=== PATIENT | female | born 1985 | race Caucasian/White ===

== ENCOUNTER 2021-10-18 00:32 | Emergency (ER) | payer SELFPAY ==
[2021-10-18] MEDS ORDERED: Metoclopramide HCl 10 MG/2 ML VIAL ONE (01:10)
[2021-10-18 01:20] LABS: #Eosinphils 0.1 10x3/uL (0.0-0.5); #Monocytes 0.5 10x3/uL (0.0-1.1); #Neutrophils 5.2 10x3/uL (1.5-8.4); %Basophils 0.4 % (0.0-2.0); %Eosinophils 1.6 % (0.0-6.0); %Lymphocytes 22.5 % (18.0-47.0); %Neutrophils 69.2 % (40.0-75.0); Hemoglobin 13.9 g/dL (12.0-15.5); Mean Corpuscular HGB CONC 34.2 g/dL (32.0-36.0); Mean Corpuscular Hemoglobin 28.7 pg (27.0-33.0); Mean Corpuscular Volume 83.7 fl (81.6-98.3); Mean Platelet Volume 9.8 fl (7.4-10.4); Platelet Count 197 10x3/uL (150-450); RBC Distribution Width 12.9 % (11.5-14.5); Red Blood Cell (RBC) Count 4.85 10x6/uL (3.90-5.03); White Blood Cell (WBC) Count 7.6 10x3/uL (3.5-10.5)
[2021-10-18] MEDS ORDERED: Ketorolac Tromethamine 30 MG/ML VIAL ONE (01:24)
[2021-10-18 01:30] LABS: BHCG - Serum Negative (NEGATIVE); Pregs Control Background? CLEAR/WHITE (CLR/WHITE); Pregs Control Bar Appear? YES (CONTROL BAR)
[2021-10-18 01:35] LABS: ALT (SGPT) 9 U/L (8-55); AST (SGOT) 14 U/L (5-34); Albumin 4.1 g/dL (3.5-5.0); Alkaline Phosphatase 50 U/L (40-110); Anion Gap 17 mmol/L (10-20); BUN (Urea Nitrogen) 6 mg/dL (7.0-18.7); Bilirubin, Total 0.7 mg/dL (0.2-1.2); Calc. Creatinine Clearance 0 mL/min (70-130); Calcium 9.3 mg/dL (7.8-10.44); Carbon Dioxide 17 mmol/L (22-29); Chloride 108 mmol/L (98-107); Estimated GFR 84; Globulin 2.5 g/dL (2.4-3.5); Glucose 121 mg/dL (70-105); Lipase 11 U/L (8-78); Protein, Total 6.6 g/dL (6.0-8.3); Sodium 139 mmol/L (136-145)
[2021-10-18 01:39] LABS: Potassium 2.9 mmol/L (3.5-5.1)
[2021-10-18 02:07] LABS: Actual Bicarbonate (HCO3v) 22 mEq/L (22-28); Base Excess -3.2 mEq/L (-2.0 to +3.0); Calcium, Ionized (venous) 1.12 mmol/L (1.16-1.32); Chloride (VBG) 106 mmol/L (98-106); Hemoglobin (Hb) 12.7 g/dL (11.7-15.5); Puncture Site Other Site; RapidComm Collect By CBN; Sodium 137.8 mmol/L (133-146); pH (venous) 7.34 (7.32-7.43)
[2021-10-18 02:30] LABS: Bilirubin 3+ (Negative); Blood, Urine 250 (Negative); Clarity Cloudy (Clear); Glucose, Urine (Dipstick) Normal (Negative); Ketone, Urine 5 mg/dL (Negative); Leukocyte 100 (Negative); Nitrite Negative (Negative); Protein, Urine (Dipstick) 100 mg/dl (Neg-Trace)
[2021-10-18 02:37] LABS: Bacteria/HPF 1+ HPF (None Seen); Mucous/LPF 1+ LPF (<2+); RBC/HPF 21-50 HPF (0-3)
== END 2021-10-18 03:16 | disposition home or self-care (01) ==
LOC: CSHERS 00:32
DX: R10.9 Unspecified abdominal pain (principal); E87.6 Hypokalemia; R11.2 Nausea with vomiting, unspecified
CPT/HCPCS: 36415; 80053; 81003; 81015; 82805; 83605; 83690; 84703; 85025; 96374; 96375; J1885; J2765

== ENCOUNTER 2022-03-06 12:57 | Emergency (ER) | payer SELFPAY ==
[2022-03-06 15:11] LABS: Bilirubin Neg (Negative); Blood, Urine Negative (Negative); Clarity Clear (Clear); Glucose, Urine (Dipstick) Normal (Negative); Ketone, Urine Negative (Negative); Leukocyte 25 (Negative); Nitrite Negative (Negative); Protein, Urine (Dipstick) 15 mg/dl (Neg-Trace); Urobilinogen Normal mg/dL (Less than 2)
[2022-03-06 15:23] LABS: Bacteria/HPF 2+ HPF (None Seen); RBC/HPF 0-3 HPF (0-3); WBC/HPF 0-3 HPF (0-3)
[2022-03-06 16:04] LABS: #Eosinphils 0.1 10x3/uL (0.0-0.5); #Monocytes 0.4 10x3/uL (0.0-1.1); #Neutrophils 3.6 10x3/uL (1.5-8.4); %Basophils 0.3 % (0.0-2.0); %Eosinophils 1.4 % (0.0-6.0); %Lymphocytes 30.9 % (18.0-47.0); %Monocytes 6.4 % (0.0-10.0); %Neutrophils 60.5 % (40.0-75.0); Hemoglobin 14.4 g/dL (12.0-15.5); Mean Corpuscular HGB CONC 34.5 g/dL (32.0-36.0); Mean Corpuscular Hemoglobin 29.6 pg (27.0-33.0); Mean Corpuscular Volume 85.6 fl (81.6-98.3); Mean Platelet Volume 10.4 fl (7.4-10.4); Platelet Count 186 10x3/uL (150-450); RBC Distribution Width 13.4 % (11.5-14.5); Red Blood Cell (RBC) Count 4.87 10x6/uL (3.90-5.03); White Blood Cell (WBC) Count 5.9 10x3/uL (3.5-10.5)
[2022-03-06 16:19] LABS: ALT (SGPT) 7 U/L (8-55); AST (SGOT) 11 U/L (5-34); Albumin 4.6 g/dL (3.5-5.0); Alkaline Phosphatase 49 U/L (40-110); Anion Gap 10 mmol/L (10-20); BUN (Urea Nitrogen) 4 mg/dL (7.0-18.7); Bilirubin, Total 0.6 mg/dL (0.2-1.2); Calc. Creatinine Clearance 0 mL/min (70-130); Calcium 9.8 mg/dL (7.8-10.44); Carbon Dioxide 24 mmol/L (22-29); Chloride 105 mmol/L (98-107); Estimated GFR 107; Globulin 2.6 g/dL (2.4-3.5); Glucose 97 mg/dL (70-105); Potassium 3.7 mmol/L (3.5-5.1); Protein, Total 7.2 g/dL (6.0-8.3); Sodium 135 mmol/L (136-145)
[2022-03-06] MEDS ORDERED: Ondansetron ODT 4 MG TAB ONE (16:39)
== END 2022-03-06 17:00 | disposition home or self-care (01) ==
LOC: CSHERS 12:57
DX: O23.41 Unspecified infection of urinary tract in pregnancy, first trimester (principal); N39.0 Urinary tract infection, site not specified; O21.9 Vomiting of pregnancy, unspecified; Z3A.01 Less than 8 weeks gestation of pregnancy
CPT/HCPCS: 80053; 81003; 81015; 84702; 85025; 86900; 86901; Q0162

== ENCOUNTER 2022-03-21 10:35 | Observation (INO) | payer BC, OTHER ==
[2022-03-21] MEDS ORDERED: Promethazine HCl 25 MG/ML VIAL ONE (11:20)
[2022-03-21 11:51] LABS: #Monocytes 0.7 10x3/uL (0.0-1.1); #Neutrophils 6.7 10x3/uL (1.5-8.4); %Basophils 0.5 % (0.0-2.0); %Eosinophils 0.3 % (0.0-6.0); %Lymphocytes 13.1 % (18.0-47.0); %Monocytes 7.9 % (0.0-10.0); %Neutrophils 77.4 % (40.0-75.0); Hemoglobin 16.5 g/dL (12.0-15.5); Mean Corpuscular HGB CONC 36.9 g/dL (32.0-36.0); Mean Corpuscular Hemoglobin 29.9 pg (27.0-33.0); Mean Corpuscular Volume 81.1 fl (81.6-98.3); Mean Platelet Volume 10.7 fl (7.4-10.4); Platelet Count 183 10x3/uL (150-450); RBC Distribution Width 13.1 % (11.5-14.5); Red Blood Cell (RBC) Count 5.51 10x6/uL (3.90-5.03); White Blood Cell (WBC) Count 8.7 10x3/uL (3.5-10.5)
[2022-03-21 12:04] LABS: ALT (SGPT) 26 U/L (8-55); AST (SGOT) 19 U/L (5-34); Albumin 4.7 g/dL (3.5-5.0); Alkaline Phosphatase 47 U/L (40-110); Anion Gap 17 mmol/L (10-20); BUN (Urea Nitrogen) 6 mg/dL (7.0-18.7); Bilirubin, Total 1.7 mg/dL (0.2-1.2); Calc. Creatinine Clearance 0 mL/min (70-130); Calcium 10.3 mg/dL (7.8-10.44); Carbon Dioxide 23 mmol/L (22-29); Chloride 97 mmol/L (98-107); Estimated GFR 115; Globulin 2.6 g/dL (2.4-3.5); Glucose 119 mg/dL (70-105); Magnesium 1.6 mg/dL (1.6-2.6); Potassium 2.7 mmol/L (3.5-5.1); Protein, Total 7.3 g/dL (6.0-8.3); Sodium 134 mmol/L (136-145)
[2022-03-21] MEDS ORDERED: Ondansetron PF 4 MG/2 ML Vial IVP PRN (12:45)
[2022-03-21] MEDS ORDERED: Ondansetron ODT 4 MG TAB SL PRN (12:45)
[2022-03-21] MEDS ORDERED: Metoclopramide HCl 10 MG/2 ML VIAL IVP PRN (12:45)
[2022-03-21] MEDS ORDERED: Magnesium 2 GM/50 ML BAG (IN WATER) ONE (13:18)
[2022-03-21] MEDS ORDERED: NS 0.9% w/ 40 MEQ KCL 1,000 ML IV ONE (13:18)
[2022-03-21] MEDS ORDERED: Potassium Chloride 20 MEQ TAB ONE (13:18)
[2022-03-21] MEDS ORDERED: Pantoprazole 40 MG VIAL ONE (13:19)
[2022-03-21 14:15] LABS: SARS-CoV-2 NAA Rapid Test Not Detected (NotDetected)
[2022-03-21 19:36] LABS: ALT (SGPT) 22 U/L (8-55); AST (SGOT) 16 U/L (5-34); Alkaline Phosphatase 40 U/L (40-110); Anion Gap 13 mmol/L (10-20); BUN (Urea Nitrogen) 4 mg/dL (7.0-18.7); Bilirubin, Total 1.1 mg/dL (0.2-1.2); Calc. Creatinine Clearance 182 mL/min (70-130); Calcium 8.9 mg/dL (7.8-10.44); Carbon Dioxide 21 mmol/L (22-29); Chloride 105 mmol/L (98-107); Estimated GFR 118; Globulin 2.1 g/dL (2.4-3.5); Glucose 93 mg/dL (70-105); Magnesium 2.1 mg/dL (1.6-2.6); Potassium 3.1 mmol/L (3.5-5.1); Protein, Total 6.1 g/dL (6.0-8.3); Sodium 136 mmol/L (136-145)
[2022-03-21] MEDS: Dextrose 5%-Lactated Ringers 1,000 ML IV SCH (20:58)
[2022-03-22] MEDS ORDERED: Ondansetron ODT 4 MG TAB PO PRN (04:09)
[2022-03-22] MEDS: Ondansetron PF 4 MG/2 ML Vial IVP PRN ×3 (04:18→21:07)
[2022-03-22] MEDS: Dextrose 5%-Lactated Ringers 1,000 ML IV SCH ×2 (04:25→12:54)
[2022-03-22] MEDS: NS 0.9% w/ 20 MEQ KCL 1,000 ML IV SCH (07:16)
[2022-03-22] MEDS: Metoclopramide HCl 10 MG/2 ML VIAL IVP PRN ×2 (08:17→16:46)
[2022-03-22] MEDS: Pantoprazole 40 MG VIAL IVP SCH (08:19)
[2022-03-23] MEDS: Dextrose 5%-Lactated Ringers 1,000 ML IV SCH ×2 (00:01→09:16)
[2022-03-23] MEDS: Metoclopramide HCl 10 MG/2 ML VIAL IVP PRN (09:10)
[2022-03-23] MEDS: Pantoprazole 40 MG VIAL IVP SCH (09:10)
[2022-03-23 11:27] VITALS: BP 129/75; TEMP 98.5
== END 2022-03-23 11:45 | disposition home or self-care (01) ==
LOC: CSHERS 10:35 → CSHPP 14:23
PROVIDERS: ADMIT Obstetrics & Gynecology; ATTEND Obstetrics & Gynecology
DX: O21.9 Vomiting of pregnancy, unspecified (principal); O09.521 Supervision of elderly multigravida, first trimester; O99.281 Endocrine, nutritional and metabolic diseases complicating pregnancy, first trimester; E87.6 Hypokalemia; Z3A.09 9 weeks gestation of pregnancy
CPT/HCPCS: 80053; 83735; 85025; 94760; 96361; 96365; 96367; 96368; 96375; 96376; C9113; G0378; J2405; J2550; J2765; J3475; J3480

== ENCOUNTER 2022-04-05 12:20 | Observation (INO) | payer BC, OTHER ==
[2022-04-05] MEDS ORDERED: Promethazine HCl 25 MG/ML VIAL ONE (13:31)
[2022-04-05 13:35] LABS: ALT (SGPT) 13 U/L (8-55); AST (SGOT) 16 U/L (5-34); Albumin 4.3 g/dL (3.5-5.0); Alkaline Phosphatase 54 U/L (40-110); Anion Gap 16 mmol/L (10-20); BUN (Urea Nitrogen) 5 mg/dL (7.0-18.7); Bilirubin, Total 0.8 mg/dL (0.2-1.2); Calc. Creatinine Clearance 0 mL/min (70-130); Calcium 9.4 mg/dL (7.8-10.44); Carbon Dioxide 18 mmol/L (22-29); Chloride 108 mmol/L (98-107); Estimated GFR 118; Globulin 2.3 g/dL (2.4-3.5); Glucose 134 mg/dL (70-105); Magnesium 1.7 mg/dL (1.6-2.6); Potassium 3.6 mmol/L (3.5-5.1); Protein, Total 6.6 g/dL (6.0-8.3); Sodium 138 mmol/L (136-145)
[2022-04-05 13:59] LABS: #Monocytes 0.3 10x3/uL (0.0-1.1); #Neutrophils 6.7 10x3/uL (1.5-8.4); %Basophils 0.4 % (0.0-2.0); %Eosinophils 0.1 % (0.0-6.0); %Lymphocytes 10.7 % (18.0-47.0); %Monocytes 3.8 % (0.0-10.0); %Neutrophils 84.1 % (40.0-75.0); Hemoglobin 14.3 g/dL (12.0-15.5); Mean Corpuscular HGB CONC 35.7 g/dL (32.0-36.0); Mean Corpuscular Hemoglobin 30.4 pg (27.0-33.0); Mean Corpuscular Volume 85.3 fl (81.6-98.3); Mean Platelet Volume 9.7 fl (7.4-10.4); Platelet Count 224 10x3/uL (150-450); RBC Distribution Width 13.9 % (11.5-14.5); White Blood Cell (WBC) Count 7.9 10x3/uL (3.5-10.5)
[2022-04-05] MEDS ORDERED: Dextrose 5 % And 0.9 % NaCl 1,000 ML IV SCH (15:28)
[2022-04-05 15:33] LABS: Bilirubin Neg (Negative); Blood, Urine 25 (Negative); Clarity Clear (Clear); Glucose, Urine (Dipstick) Normal (Negative); Ketone, Urine 150 mg/dL (Negative); Leukocyte Negative (Negative); Nitrite Negative (Negative); Protein, Urine (Dipstick) 30 mg/dl (Neg-Trace); Specific Gravity, Urine 1.025 (1.005-1.030); Urobilinogen Normal mg/dL (Less than 2)
[2022-04-05] MEDS ORDERED: Prochlorperazine 10 MG/2 ML VIAL ONE (15:37)
[2022-04-05] MEDS ORDERED: Thiamine HCl 200 MG/2 ML VIAL ONE (15:37)
[2022-04-05 15:52] LABS: Bacteria/HPF 1+ HPF (None Seen); Epithelial Cast 0-3 LPF (None Seen); Mucous/LPF 1+ LPF (<2+); RBC/HPF 0-3 HPF (0-3)
[2022-04-05 17:29] VITALS: BMI 37.1
[2022-04-05] MEDS ORDERED: Docusate 100 MG CAP PO PRN (17:33)
[2022-04-05] MEDS ORDERED: hydrALAZINE 20 MG/ML VIAL SLOW IVP PRN (17:33)
[2022-04-05] MEDS ORDERED: Acetaminophen 500 MG TAB PO PRN (17:33)
[2022-04-05] MEDS ORDERED: Pantoprazole 40 MG VIAL IVP SCH (18:00)
[2022-04-05] MEDS: Ondansetron PF 4 MG/2 ML Vial IVP SCH (18:16)
[2022-04-05] MEDS: Metoclopramide 10 MG/10 ML UDCUP PO SCH (18:17)
[2022-04-05 19:41] LABS: Hemoglobin 12.5 g/dL (12.0-15.5); Mean Corpuscular HGB CONC 34.5 g/dL (32.0-36.0); Mean Corpuscular Hemoglobin 29.9 pg (27.0-33.0); Mean Corpuscular Volume 86.6 fl (81.6-98.3); Mean Platelet Volume 9.5 fl (7.4-10.4); Platelet Count 199 10x3/uL (150-450); Red Blood Cell (RBC) Count 4.18 10x6/uL (3.90-5.03); White Blood Cell (WBC) Count 7.1 10x3/uL (3.5-10.5)
[2022-04-05] MEDS: Lactated Ringer's 1,000 ML IV SCH (23:04)
[2022-04-06] MEDS: Ondansetron PF 4 MG/2 ML Vial IVP SCH ×3 (02:13→18:10)
[2022-04-06] MEDS: Metoclopramide 10 MG/10 ML UDCUP PO SCH ×3 (02:13→18:10)
[2022-04-06] MEDS: Lactated Ringer's 1,000 ML IV SCH ×3 (06:23→23:04)
[2022-04-06] MEDS: Pantoprazole 40 MG VIAL IVP SCH (08:52)
[2022-04-07] MEDS: Metoclopramide 10 MG/10 ML UDCUP PO SCH ×2 (02:23→10:47)
[2022-04-07] MEDS: Ondansetron PF 4 MG/2 ML Vial IVP SCH ×2 (02:24→10:44)
[2022-04-07] MEDS: Lactated Ringer's 1,000 ML IV SCH ×2 (06:33→08:43)
[2022-04-07] MEDS: Pantoprazole 40 MG VIAL IVP SCH (08:42)
[2022-04-07 11:38] VITALS: TEMP 97.9
[2022-04-07 15:48] VITALS: BP 122/68
== END 2022-04-07 16:38 | disposition home or self-care (01) ==
LOC: CSHERS 12:20 → CSHPED 16:35
PROVIDERS: ADMIT Obstetrics & Gynecology; ATTEND Obstetrics & Gynecology
DX: O21.0 Mild hyperemesis gravidarum (principal); Z88.5 Allergy status to narcotic agent; Z88.8 Allergy status to other drugs, medicaments and biological substances; Z91.013 Allergy to seafood; Z3A.16 16 weeks gestation of pregnancy
CPT/HCPCS: 80053; 81003; 81015; 82550; 83605; 83735; 85025; 86850; 86900; 86901; 87086; 93005; 94760; 96361; 96365; 96375; 96376; C9113; G0378; J0780; J2405; J2550; J3411; J7120

== ENCOUNTER 2022-04-13 08:54 | Observation (INO) | payer BC, MEDICAID, OTHER ==
[2022-04-13] MEDS ORDERED: Promethazine HCl 25 MG/ML VIAL ONE (09:33)
[2022-04-13] MEDS ORDERED: Pantoprazole 40 MG VIAL ONE (09:34)
[2022-04-13 09:54] LABS: #Eosinphils 0.1 10x3/uL (0.0-0.5); #Monocytes 0.4 10x3/uL (0.0-1.1); #Neutrophils 6.2 10x3/uL (1.5-8.4); %Basophils 0.4 % (0.0-2.0); %Eosinophils 0.6 % (0.0-6.0); %Lymphocytes 16.2 % (18.0-47.0); %Neutrophils 76.6 % (40.0-75.0); Hemoglobin 14.9 g/dL (12.0-15.5); Mean Corpuscular HGB CONC 35.1 g/dL (32.0-36.0); Mean Corpuscular Hemoglobin 30.1 pg (27.0-33.0); Mean Corpuscular Volume 85.9 fl (81.6-98.3); Platelet Count 200 10x3/uL (150-450); RBC Distribution Width 13.9 % (11.5-14.5); Red Blood Cell (RBC) Count 4.95 10x6/uL (3.90-5.03); White Blood Cell (WBC) Count 8.1 10x3/uL (3.5-10.5)
[2022-04-13 10:29] LABS: ALT (SGPT) 7 U/L (8-55); AST (SGOT) 12 U/L (5-34); Albumin 4.3 g/dL (3.5-5.0); Alkaline Phosphatase 43 U/L (40-110); Anion Gap 13 mmol/L (10-20); BUN (Urea Nitrogen) 5 mg/dL (7.0-18.7); Bilirubin, Total 0.8 mg/dL (0.2-1.2); Calc. Creatinine Clearance 0 mL/min (70-130); Calcium 9.6 mg/dL (7.8-10.44); Carbon Dioxide 23 mmol/L (22-29); Chloride 105 mmol/L (98-107); Estimated GFR 115; Globulin 2.6 g/dL (2.4-3.5); Glucose 114 mg/dL (70-105); Lipase 18 U/L (8-78); Magnesium 1.7 mg/dL (1.6-2.6); Potassium 3.4 mmol/L (3.5-5.1); Protein, Total 6.9 g/dL (6.0-8.3); Sodium 138 mmol/L (136-145)
[2022-04-13] MEDS ORDERED: Metoclopramide HCl 10 MG/2 ML VIAL ONE (11:17)
[2022-04-13 11:43] LABS: Bilirubin 1+ (Negative); Blood, Urine 50 (Negative); Clarity Cloudy (Clear); Glucose, Urine (Dipstick) Normal (Negative); Ketone, Urine 50 mg/dL (Negative); Leukocyte Negative (Negative); Nitrite Negative (Negative); Protein, Urine (Dipstick) 30 mg/dl (Neg-Trace); Specific Gravity, Urine 1.025 (1.005-1.030)
[2022-04-13 12:11] LABS: Bacteria/HPF Rare-Few HPF (None Seen); RBC/HPF 0-3 HPF (0-3); Squamous Epithelial 0-3 HPF (0-3); WBC/HPF 0-3 HPF (0-3)
[2022-04-13] MEDS ORDERED: Ondansetron PF 4 MG/2 ML Vial IVP PRN (13:15)
[2022-04-13] MEDS ORDERED: Ondansetron ODT 4 MG TAB SL PRN (13:15)
[2022-04-13] MEDS ORDERED: Acetaminophen 325 MG TAB PO PRN (13:15)
[2022-04-13] MEDS: D5 1/2 NS 500 ML IV SCH ×2 (13:40→15:10)
[2022-04-13] MEDS: Multivitamins, Adult 10 ML, Folic Acid 1 MG, Thiamine HCl 100 MG in Dextrose 5 %-0.45 %... IV SCH (17:05)
[2022-04-13] MEDS: Lactated Ringer's 1,000 ML IV SCH (17:05)
[2022-04-13] MEDS: Promethazine HCl 25 MG in Sodium Chloride 0.9% 50 ML IVPB PRN (17:57)
[2022-04-13] MEDS: Metoclopramide HCl 10 MG/2 ML VIAL IVP SCH (21:57)
[2022-04-14] MEDS: Lactated Ringer's 1,000 ML IV SCH ×3 (01:30→19:09)
[2022-04-14 04:38] LABS: Amphetamine Not Detected (NotDetected); Barbiturates Screen Not Detected (NotDetected); Benzodiazepine Screen Not Detected (NotDetected); Cocaine Metabolite Screen Not Detected (NotDetected); Methadone Not Detected (NotDetected); Methamphetamine Not Detected (NotDetected); Opiate Screen Not Detected (NotDetected); Oxycodone Screen Not Detected (NotDetected); Phencyclidine (PCP) Not Detected (NotDetected); THC/Cannabinoid Screen Detected (NotDetected); Tricyclic Screen Not Detected (NotDetected)
[2022-04-14] MEDS: Promethazine HCl 25 MG in Sodium Chloride 0.9% 50 ML IVPB PRN ×2 (05:06→10:53)
[2022-04-14] MEDS: Metoclopramide HCl 10 MG/2 ML VIAL IVP SCH ×4 (05:21→22:01)
[2022-04-14 08:11] VITALS: BMI 36.4
[2022-04-14] MEDS ORDERED: Ondansetron ODT 4 MG TAB PO PRN (11:41)
[2022-04-14] MEDS ORDERED: Ondansetron PF 4 MG/2 ML Vial IVP PRN (11:42)
[2022-04-14] MEDS ORDERED: Acetaminophen 325 MG TAB PO PRN (16:23)
[2022-04-14] MEDS: Ondansetron ODT 4 MG TAB PO SCH (17:15)
[2022-04-14] MEDS: Multivitamins, Adult 10 ML, Folic Acid 1 MG, Thiamine HCl 100 MG in Dextrose 5 %-0.45 %... IV SCH (17:16)
[2022-04-14] MEDS ORDERED: Lactated Ringer's 1,000 ML IV SCH (18:00)
[2022-04-15] MEDS: Ondansetron ODT 4 MG TAB PO SCH ×4 (00:27→17:39)
[2022-04-15] MEDS: Dextrose 5 %-0.45 % NaCl 1,000 ML IV SCH ×3 (07:15→16:36)
[2022-04-15] MEDS: Metoclopramide HCl 10 MG/2 ML VIAL IVP SCH ×4 (07:54→20:52)
[2022-04-15] MEDS: Multivitamins, Adult 10 ML, Folic Acid 1 MG, Thiamine HCl 100 MG in Dextrose 5 %-0.45 %... IV SCH (16:35)
[2022-04-15] MEDS: Doxylamine 25 MG TAB PO PRN (20:52)
[2022-04-16] MEDS: Ondansetron ODT 4 MG TAB PO SCH ×5 (00:09→23:40)
[2022-04-16] MEDS: Dextrose 5 %-0.45 % NaCl 1,000 ML IV SCH ×4 (02:03→20:50)
[2022-04-16] MEDS: Metoclopramide HCl 10 MG/2 ML VIAL IVP SCH ×4 (07:45→20:48)
[2022-04-16] MEDS: Doxylamine 25 MG TAB PO PRN (20:48)
[2022-04-17] MEDS: Ondansetron ODT 4 MG TAB PO SCH ×2 (05:53→11:56)
[2022-04-17] MEDS: Dextrose 5 %-0.45 % NaCl 1,000 ML IV SCH (05:53)
[2022-04-17] MEDS: Metoclopramide HCl 10 MG/2 ML VIAL IVP SCH ×3 (08:34→16:44)
[2022-04-17 17:53] VITALS: BP 125/71; TEMP 97.6
== END 2022-04-17 18:15 | disposition home or self-care (01) ==
LOC: CSHERS 08:54 → CSHPED 12:20
PROVIDERS: ADMIT Obstetrics & Gynecology; ATTEND Obstetrics & Gynecology
DX: O21.1 Hyperemesis gravidarum with metabolic disturbance (principal); Z3A.11 11 weeks gestation of pregnancy; Z79.899 Other long term (current) drug therapy; Z88.5 Allergy status to narcotic agent; Z91.013 Allergy to seafood; Z88.8 Allergy status to other drugs, medicaments and biological substances; Z90.49 Acquired absence of other specified parts of digestive tract; Z98.890 Other specified postprocedural states
CPT/HCPCS: 36415; 80053; 80306; 81003; 81015; 83605; 83690; 83735; 84443; 84702; 85025; 86376; 86800; 96361; 96365; 96366; 96367; 96375; 96376; C9113; G0378; J2405; J2550; J2765; J3411; J3415; J7042; J7120; Q0162

== ENCOUNTER 2022-04-25 11:22 | Inpatient (IN) | payer BC, OTHER ==
[2022-04-25] MEDS ORDERED: Promethazine HCl 25 MG/ML VIAL ONE (15:22)
[2022-04-25 15:26] LABS: #Basophils 0.1 10x3/uL (0.0-0.2); #Monocytes 0.7 10x3/uL (0.0-1.1); #Neutrophils 15.9 10x3/uL (1.5-8.4); %Basophils 0.3 % (0.0-2.0); %Eosinophils 0.1 % (0.0-6.0); %Lymphocytes 4.8 % (18.0-47.0); %Monocytes 4.2 % (0.0-10.0); %Neutrophils 89.8 % (40.0-75.0); Hemoglobin 15.3 g/dL (12.0-15.5); Mean Corpuscular HGB CONC 36.2 g/dL (32.0-36.0); Mean Corpuscular Hemoglobin 30.4 pg (27.0-33.0); Mean Corpuscular Volume 83.9 fl (81.6-98.3); Platelet Count 226 10x3/uL (150-450); RBC Distribution Width 13.1 % (11.5-14.5); Red Blood Cell (RBC) Count 5.04 10x6/uL (3.90-5.03); White Blood Cell (WBC) Count 17.7 10x3/uL (3.5-10.5)
[2022-04-25 15:35] LABS: Acetaminophen Less than 10.0 mcg/mL (10.0-30.0); Alcohol Less than 10 mg/dL (Less than 10); Salicylate Less than 8.0 mg/dL (15.0-30.0)
[2022-04-25 15:36] LABS: ALT (SGPT) 7 U/L (8-55); AST (SGOT) 10 U/L (5-34); Albumin 4.9 g/dL (3.5-5.0); Alkaline Phosphatase 50 U/L (40-110); Anion Gap 18 mmol/L (10-20); BUN (Urea Nitrogen) 7 mg/dL (7.0-18.7); Bilirubin, Total 0.8 mg/dL (0.2-1.2); Calc. Creatinine Clearance 0 mL/min (70-130); Calcium 10.3 mg/dL (7.8-10.44); Carbon Dioxide 20 mmol/L (22-29); Chloride 103 mmol/L (98-107); Estimated GFR 116; Globulin 2.6 g/dL (2.4-3.5); Glucose 138 mg/dL (70-105); Potassium 3.3 mmol/L (3.5-5.1); Protein, Total 7.5 g/dL (6.0-8.3); Sodium 138 mmol/L (136-145)
[2022-04-25] MEDS ORDERED: diphenhydrAMINE 50 MG/ML VIAL ONE (17:05)
[2022-04-25] MEDS ORDERED: Metoclopramide HCl 10 MG/2 ML VIAL ONE (17:06)
[2022-04-25] MEDS ORDERED: Ondansetron ODT 4 MG TAB PO PRN (18:21)
[2022-04-25] MEDS ORDERED: Calcium Carbonate 500 MG ChewTAB PO PRN (18:21)
[2022-04-25] MEDS ORDERED: Acetaminophen 500 MG TAB PO PRN (18:34)
[2022-04-25] MEDS: Sodium Chloride 0.9% 1,000 ML IV SCH (20:12)
[2022-04-25 20:21] VITALS: BMI 36.5
[2022-04-25] MEDS ORDERED: Potassium Chloride 20 MEQ in Premix Bag 1 BAG IVPB ONE (20:30)
[2022-04-25] MEDS: Doxylamine 25 MG TAB PO SCH (21:00)
[2022-04-25] MEDS: pyridOXINE 50 MG (B6) TAB PO SCH (21:00)
[2022-04-25] MEDS: Ondansetron PF 4 MG/2 ML Vial IVP PRN (21:24)
[2022-04-25] MEDS: Famotidine/PF 20 mg/2ml Vial SLOW IVP SCH (21:24)
[2022-04-26] MEDS: Metoclopramide HCl 10 MG/2 ML VIAL IVP SCH ×4 (00:38→22:21)
[2022-04-26] MEDS: Ondansetron PF 4 MG/2 ML Vial IVP PRN ×2 (06:42→17:36)
[2022-04-26] MEDS: Sodium Chloride 0.9% 1,000 ML IV SCH ×3 (06:43→22:21)
[2022-04-26] MEDS ORDERED: FLU VACC QS2022-23(6MOS UP)/PF 60 MCG/0.5 ML SYRINGE IM ONE (09:00)
[2022-04-26] MEDS: Famotidine/PF 20 mg/2ml Vial SLOW IVP SCH ×2 (09:30→21:05)
[2022-04-26] MEDS: pyridOXINE 50 MG (B6) TAB PO SCH (21:05)
[2022-04-26] MEDS: Doxylamine 25 MG TAB PO SCH (21:09)
[2022-04-27] MEDS: Ondansetron PF 4 MG/2 ML Vial IVP PRN ×3 (02:50→19:14)
[2022-04-27] MEDS: Sodium Chloride 0.9% 1,000 ML IV SCH ×3 (05:55→21:33)
[2022-04-27] MEDS: Metoclopramide HCl 10 MG/2 ML VIAL IVP SCH ×3 (05:55→21:31)
[2022-04-27] MEDS: Famotidine/PF 20 mg/2ml Vial SLOW IVP SCH ×2 (08:39→21:31)
[2022-04-27] MEDS: Doxylamine 25 MG TAB PO SCH (21:32)
[2022-04-27] MEDS: pyridOXINE 50 MG (B6) TAB PO SCH (21:32)
[2022-04-28] MEDS: Metoclopramide HCl 10 MG/2 ML VIAL IVP SCH ×3 (05:25→22:53)
[2022-04-28] MEDS: Sodium Chloride 0.9% 1,000 ML IV SCH ×3 (05:25→20:36)
[2022-04-28] MEDS: Famotidine/PF 20 mg/2ml Vial SLOW IVP SCH ×2 (09:13→20:10)
[2022-04-28] MEDS: Ondansetron PF 4 MG/2 ML Vial IVP PRN ×2 (09:13→15:36)
[2022-04-28] MEDS: Promethazine HCl 25 MG in Sodium Chloride 0.9% 50 ML IVPB PRN (20:08)
[2022-04-28] MEDS: Doxylamine 25 MG TAB PO SCH (20:13)
[2022-04-28] MEDS: pyridOXINE 50 MG (B6) TAB PO SCH (20:13)
[2022-04-29] MEDS: Metoclopramide HCl 10 MG/2 ML VIAL IVP SCH ×3 (05:10→20:02)
[2022-04-29] MEDS: Famotidine/PF 20 mg/2ml Vial SLOW IVP SCH ×2 (08:59→20:02)
[2022-04-29] MEDS: Promethazine HCl 25 MG in Sodium Chloride 0.9% 50 ML IVPB PRN (09:00)
[2022-04-29] MEDS: Ondansetron PF 4 MG/2 ML Vial IVP PRN (13:24)
[2022-04-29] MEDS: Sodium Chloride 0.9% 1,000 ML IV SCH ×2 (15:09)
[2022-04-29] MEDS: pyridOXINE 50 MG (B6) TAB PO SCH (20:08)
[2022-04-29] MEDS: Doxylamine 25 MG TAB PO SCH (20:08)
[2022-04-30] MEDS: Ondansetron PF 4 MG/2 ML Vial IVP PRN ×2 (04:28→16:17)
[2022-04-30] MEDS: Dextrose 5%-Lactated Ringers 1,000 ML IV SCH ×2 (07:44→08:51)
[2022-04-30] MEDS: Metoclopramide HCl 10 MG/2 ML VIAL IVP SCH ×5 (07:50→20:56)
[2022-04-30] MEDS: Famotidine/PF 20 mg/2ml Vial SLOW IVP SCH ×2 (08:45→20:55)
[2022-04-30] MEDS: Doxylamine 25 MG TAB PO SCH (21:00)
[2022-04-30] MEDS: pyridOXINE 50 MG (B6) TAB PO SCH (21:00)
[2022-05-01] MEDS: Metoclopramide HCl 10 MG/2 ML VIAL IVP SCH ×2 (06:36→11:05)
[2022-05-01] MEDS: Dextrose 5%-Lactated Ringers 1,000 ML IV SCH ×2 (07:11→08:02)
[2022-05-01] MEDS: Famotidine/PF 20 mg/2ml Vial SLOW IVP SCH (08:02)
[2022-05-01 16:14] VITALS: BP 135/83; TEMP 98
== END 2022-05-01 16:05 | disposition home or self-care (01) | DRG 833 ==
LOC: CSHERS 11:22 → CSHPP 19:49 → OBSVTOIN 04-27 15:52
PROVIDERS: ADMIT Obstetrics & Gynecology; ATTEND Obstetrics & Gynecology
DX: O21.1 Hyperemesis gravidarum with metabolic disturbance (principal); E66.9 Obesity, unspecified; K59.00 Constipation, unspecified; F17.210 Nicotine dependence, cigarettes, uncomplicated; Z3A.13 13 weeks gestation of pregnancy; Z98.890 Other specified postprocedural states; Z90.49 Acquired absence of other specified parts of digestive tract; Z79.899 Other long term (current) drug therapy; Z88.6 Allergy status to analgesic agent; O99.211 Obesity complicating pregnancy, first trimester; O99.331 Smoking (tobacco) complicating pregnancy, first trimester; O34.211 Maternal care for low transverse scar from previous cesarean delivery; Z88.5 Allergy status to narcotic agent; O99.611 Diseases of the digestive system complicating pregnancy, first trimester; Z91.013 Allergy to seafood
CPT/HCPCS: 80053; 80307; 85025; 96361; 96365; 96366; 96367; 96375; 96376; G0378; J1200; J2405; J2550; J2765; J3480; J7050; S0028

== ENCOUNTER 2022-06-02 23:16 | Observation (INO) | payer BC, OTHER ==
[2022-06-02] MEDS ORDERED: Ondansetron PF 4 MG/2 ML Vial ONE (23:44)
[2022-06-03 00:07] LABS: #Monocytes 0.5 10x3/uL (0.0-1.1); %Basophils 0.2 % (0.0-2.0); %Lymphocytes 10.2 % (18.0-47.0); %Monocytes 4.9 % (0.0-10.0); %Neutrophils 83.9 % (40.0-75.0); Hemoglobin 12.2 g/dL (12.0-15.5); Mean Corpuscular HGB CONC 34.2 g/dL (32.0-36.0); Mean Corpuscular Hemoglobin 30.4 pg (27.0-33.0); Platelet Count 184 10x3/uL (150-450); RBC Distribution Width 13.2 % (11.5-14.5); Red Blood Cell (RBC) Count 4.01 10x6/uL (3.90-5.03); White Blood Cell (WBC) Count 10.7 10x3/uL (3.5-10.5)
[2022-06-03 00:10] LABS: Actual Bicarbonate (HCO3v) 21 mEq/L (22-28); Base Excess -1.9 mEq/L (-2 - +2); Calcium, Ionized (venous) 1.08 mmol/L (1.16-1.32); Chloride (VBG) 104 mmol/L (98-106); Critical Notified By: CP.PH; Hemoglobin (Hb) 13.2 g/dL (11.7-15.5); Potassium (VBG) 3.22 mmol/L (3.70-5.30); Puncture Site Other Site; Sodium 135.5 mmol/L (133-146); pH (venous) 7.47 (7.32-7.43)
[2022-06-03 00:12] LABS: ALT (SGPT) 7 U/L (8-55); AST (SGOT) 10 U/L (5-34); Albumin 3.8 g/dL (3.5-5.0); Alkaline Phosphatase 48 U/L (40-110); Anion Gap 14 mmol/L (10-20); BUN (Urea Nitrogen) 5 mg/dL (7.0-18.7); Bilirubin, Total 0.7 mg/dL (0.2-1.2); Calc. Creatinine Clearance 0 mL/min (70-130); Calcium 8.9 mg/dL (7.8-10.44); Carbon Dioxide 21 mmol/L (22-29); Chloride 107 mmol/L (98-107); Estimated GFR 119; Glucose 116 mg/dL (70-105); Lipase 6 U/L (8-78); Potassium 3.2 mmol/L (3.5-5.1); Protein, Total 5.8 g/dL (6.0-8.3); Sodium 139 mmol/L (136-145)
[2022-06-03 00:27] LABS: Bilirubin Neg (Negative); Blood, Urine 25 (Negative); Clarity Slightly Cloudy (Clear); Glucose, Urine (Dipstick) 50 mg/dL (Negative); Ketone, Urine 150 mg/dL (Negative); Leukocyte 25 (Negative); Nitrite Negative (Negative); Protein, Urine (Dipstick) 30 mg/dl (Neg-Trace)
[2022-06-03 00:42] LABS: Bacteria/HPF 1+ HPF (None Seen)
[2022-06-03] MEDS ORDERED: Metoclopramide HCl 10 MG/2 ML VIAL ONE (01:23)
[2022-06-03] MEDS ORDERED: Ondansetron ODT 4 MG TAB SL PRN (02:45)
[2022-06-03] MEDS ORDERED: Ondansetron PF 4 MG/2 ML Vial IVP PRN (02:45)
[2022-06-03 02:47] VITALS: BMI 34.2
[2022-06-03] MEDS: D5 1/2 NS w/20 mEq KCL 1,000 ML IV SCH ×2 (04:10→09:59)
[2022-06-03] MEDS ORDERED: Ondansetron PF 4 MG/2 ML Vial IVP SCH (07:30)
[2022-06-03] MEDS ORDERED: Metoclopramide HCl 10 MG/2 ML VIAL IVP SCH (07:30)
[2022-06-03] MEDS ORDERED: Folic Acid 1 MG, Thiamine HCl 100 MG in Dextrose 5 %-0.45 % NaCl 1,000 ML IV SCH (08:30)
[2022-06-03] MEDS ORDERED: FLU VACC QS2022-23(6MOS UP)/PF 60 MCG/0.5 ML SYRINGE IM ONE (09:00)
[2022-06-03] MEDS: Famotidine/PF 20 mg/2ml Vial SLOW IVP SCH ×2 (09:53→21:06)
[2022-06-03] MEDS: Doxylamine 25 MG TAB PO SCH ×2 (09:53→21:06)
[2022-06-03] MEDS: Metoclopramide HCl 10 MG/2 ML VIAL IVP SCH ×2 (09:53→21:06)
[2022-06-03] MEDS: Prenatal Vitamin 1 TAB PO SCH (09:53)
[2022-06-03] MEDS: Docusate 100 MG CAP PO SCH ×2 (09:53→21:06)
[2022-06-03] MEDS: pyridOXINE 50 MG (B6) TAB PO SCH ×3 (09:53→21:06)
[2022-06-03] MEDS: Ondansetron PF 4 MG/2 ML Vial IVP SCH ×2 (12:41→18:01)
[2022-06-04] MEDS: Ondansetron PF 4 MG/2 ML Vial IVP SCH ×3 (00:47→12:39)
[2022-06-04] MEDS: Famotidine/PF 20 mg/2ml Vial SLOW IVP SCH (08:17)
[2022-06-04] MEDS: Docusate 100 MG CAP PO SCH (08:17)
[2022-06-04] MEDS: Prenatal Vitamin 1 TAB PO SCH (08:17)
[2022-06-04] MEDS: pyridOXINE 50 MG (B6) TAB PO SCH ×2 (08:17→15:31)
[2022-06-04] MEDS: Doxylamine 25 MG TAB PO SCH (08:17)
[2022-06-04] MEDS: Metoclopramide HCl 10 MG/2 ML VIAL IVP SCH (08:17)
[2022-06-04 16:40] VITALS: BP 106/62; TEMP 98.7
== END 2022-06-04 19:07 | disposition home or self-care (01) ==
LOC: CSHERS 23:16 → CSHANTE 06-03 02:08
PROVIDERS: ADMIT Student in an Organized Health Care Education/Training Program; ATTEND Student in an Organized Health Care Education/Training Program
DX: O21.0 Mild hyperemesis gravidarum (principal); Z88.5 Allergy status to narcotic agent; Z91.041 Radiographic dye allergy status; Z91.013 Allergy to seafood; Z20.822 Contact with and (suspected) exposure to COVID-19; Z3A.20 20 weeks gestation of pregnancy; Z79.899 Other long term (current) drug therapy
CPT/HCPCS: 36415; 80053; 81003; 81015; 82010; 82805; 83605; 83690; 85025; 96365; 96366; 96374; 96375; 96376; G0378; J2405; J2765; J3411; J3480; J7042; S0028; U0003; U0005

== ENCOUNTER 2022-07-01 08:47 | Inpatient (IN) | payer BC, OTHER ==
[2022-07-01 09:12] VITALS: BMI 34.2
[2022-07-01] MEDS ORDERED: hydrALAZINE 20 MG/ML VIAL SLOW IVP PRN (09:52)
[2022-07-01] MEDS ORDERED: Promethazine HCl 25 MG/ML VIAL IM PRN (09:56)
[2022-07-01] MEDS ORDERED: Lactated Ringer's 1,000 ML IV SCH (10:00)
[2022-07-01] MEDS ORDERED: Dextrose 5%-Lactated Ringers 1,000 ML IV SCH (10:00)
[2022-07-01] MEDS ORDERED: Ondansetron PF 4 MG/2 ML Vial IVP SCH (10:00)
[2022-07-01] MEDS ORDERED: Ondansetron PF 4 MG/2 ML Vial ONE (10:07)
[2022-07-01 10:28] LABS: #Monocytes 0.2 10x3/uL (0.0-1.1); #Neutrophils 7.5 10x3/uL (1.5-8.4); %Basophils 0.2 % (0.0-2.0); %Lymphocytes 10.8 % (18.0-47.0); %Monocytes 2.6 % (0.0-10.0); %Neutrophils 85.2 % (40.0-75.0); Hemoglobin 12.4 g/dL (12.0-15.5); Mean Corpuscular HGB CONC 34.3 g/dL (32.0-36.0); Mean Corpuscular Hemoglobin 31.3 pg (27.0-33.0); Mean Corpuscular Volume 91.4 fl (81.6-98.3); Mean Platelet Volume 10.9 fl (7.4-10.4); Platelet Count 175 10x3/uL (150-450); RBC Distribution Width 13.4 % (11.5-14.5); Red Blood Cell (RBC) Count 3.96 10x6/uL (3.90-5.03); White Blood Cell (WBC) Count 8.9 10x3/uL (3.5-10.5)
[2022-07-01 10:37] LABS: ALT (SGPT) 8 U/L (8-55); AST (SGOT) 10 U/L (5-34); Albumin 3.7 g/dL (3.5-5.0); Alkaline Phosphatase 48 U/L (40-110); Anion Gap 16 mmol/L (10-20); BUN (Urea Nitrogen) 5 mg/dL (7.0-18.7); Bilirubin, Total 0.4 mg/dL (0.2-1.2); Calc. Creatinine Clearance 226 mL/min (70-130); Calcium 8.8 mg/dL (7.8-10.44); Carbon Dioxide 19 mmol/L (22-29); Chloride 108 mmol/L (98-107); Estimated GFR 121; Globulin 2.1 g/dL (2.4-3.5); Glucose 118 mg/dL (70-105); Potassium 3.5 mmol/L (3.5-5.1); Protein, Total 5.8 g/dL (6.0-8.3); Sodium 139 mmol/L (136-145)
[2022-07-01 10:45] LABS: Bilirubin Neg (Negative); Blood, Urine 10 (Negative); Glucose, Urine (Dipstick) 250 mg/dL (Negative); Ketone, Urine 150 mg/dL (Negative); Leukocyte Negative (Negative); Nitrite Negative (Negative); Protein, Urine (Dipstick) 30 mg/dl (Neg-Trace); Specific Gravity, Urine 1.025 (1.005-1.030); Urobilinogen Normal mg/dL (Less than 2)
[2022-07-01] MEDS: Promethazine HCl 12.5 MG in Sodium Chloride 0.9% 50 ML IVPB PRN ×2 (10:46→17:12)
[2022-07-01 11:01] LABS: Clarity Turbid (Clear)
[2022-07-01 11:15] LABS: RBC/HPF 0-3 HPF (0-3)
[2022-07-01 11:16] LABS: Bacteria/HPF Rare-Few HPF (None Seen); CAUTI Indications for Culture Pregnancy; WBC/HPF 0-3 HPF (0-3)
[2022-07-01 11:28] LABS: Urine Culture Reflex Yes Yes
[2022-07-01] MEDS ORDERED: Pantoprazole 40 MG VIAL IVP SCH (13:00)
[2022-07-01] MEDS: Ondansetron PF 4 MG/2 ML Vial IVP PRN ×2 (13:55→19:44)
[2022-07-01] MEDS: Metoclopramide HCl 10 MG/2 ML VIAL IVP PRN ×2 (14:56→21:13)
[2022-07-01] MEDS: Lactated Ringer's 1,000 ML IV SCH (15:45)
[2022-07-02] MEDS: Promethazine HCl 12.5 MG in Sodium Chloride 0.9% 50 ML IVPB PRN (00:02)
[2022-07-02] MEDS: Lactated Ringer's 1,000 ML IV SCH ×3 (00:05→14:27)
[2022-07-02] MEDS: Metoclopramide HCl 10 MG/2 ML VIAL IVP PRN ×2 (03:26→09:34)
[2022-07-02] MEDS: Ondansetron PF 4 MG/2 ML Vial IVP PRN ×2 (06:17→12:57)
[2022-07-02 16:20] VITALS: BP 110/69; TEMP 98
== END 2022-07-02 18:26 | disposition home or self-care (01) | DRG 833 ==
LOC: CSHLD/OP 08:47 → CSHANTE 15:05 → OBSVTOIN 15:06
PROVIDERS: ADMIT Obstetrics & Gynecology; ATTEND Obstetrics & Gynecology
DX: O21.0 Mild hyperemesis gravidarum (principal); Z3A.23 23 weeks gestation of pregnancy; O34.211 Maternal care for low transverse scar from previous cesarean delivery; Z90.49 Acquired absence of other specified parts of digestive tract; Z79.899 Other long term (current) drug therapy; Z91.041 Radiographic dye allergy status; Z88.5 Allergy status to narcotic agent; Z91.013 Allergy to seafood
CPT/HCPCS: 80053; 81001; 84443; 85025; 87086; 96360; 96361; 96375; 99285; C9113; J2405; J2550; J2765; J7120

== ENCOUNTER 2022-07-10 13:05 | Emergency (ER) | payer BC, OTHER | END 2022-07-10 14:51 | disposition home or self-care (01) | LOC: CSHERS 13:05 | DX: O22.42 Hemorrhoids in pregnancy, second trimester (principal); Z3A.25 25 weeks gestation of pregnancy ==

== ENCOUNTER 2022-09-22 13:21 | Day surgery (SDC) | payer BC, OTHER ==
[2022-09-22 13:52] VITALS: BMI 35.2
[2022-09-22] MEDS ORDERED: hydrALAZINE 20 MG/ML VIAL SLOW IVP PRN (14:58)
[2022-09-22 15:45] LABS: Bilirubin Neg (Negative); Blood, Urine Negative (Negative); Clarity Clear (Clear); Glucose, Urine (Dipstick) Normal (Negative); Ketone, Urine Negative (Negative); Leukocyte Negative (Negative); Nitrite Negative (Negative); Protein, Urine (Dipstick) Negative (Neg-Trace); Specific Gravity, Urine 1.015 (1.005-1.030); Urobilinogen Normal mg/dL (Less than 2)
[2022-09-22 15:57] LABS: Bacteria/HPF Rare-Few HPF (None Seen); CAUTI Indications for Culture Pregnancy; RBC/HPF None Seen HPF (0-3); Squamous Epithelial 0-3 HPF (0-3); WBC/HPF 0-3 HPF (0-3)
[2022-09-22 15:58] LABS: Urine Culture Reflex Yes Yes
== END 2022-09-22 16:52 | disposition home or self-care (01) ==
LOC: CSHLD/OP 13:21
PROVIDERS: ATTEND Obstetrics & Gynecology
DX: O99.891 Other specified diseases and conditions complicating pregnancy (principal); R10.9 Unspecified abdominal pain; O99.283 Endocrine, nutritional and metabolic diseases complicating pregnancy, third trimester; E07.9 Disorder of thyroid, unspecified; O34.211 Maternal care for low transverse scar from previous cesarean delivery; Z79.899 Other long term (current) drug therapy; Z91.041 Radiographic dye allergy status; Z88.5 Allergy status to narcotic agent; Z91.013 Allergy to seafood; Z79.890 Hormone replacement therapy; Z3A.34 34 weeks gestation of pregnancy
CPT/HCPCS: 81001; 87086; 99282

== ENCOUNTER 2022-10-11 12:44 | Day surgery (SDC) | payer BC, OTHER ==
[2022-10-11 13:43] VITALS: BMI 37.2
[2022-10-11] MEDS ORDERED: hydrALAZINE 20 MG/ML VIAL SLOW IVP PRN (13:52)
== END 2022-10-11 15:45 | disposition home health service (06) ==
LOC: CSHLD/OP 12:44 → EEVIPCON 12:44 → CSHLD/OP 15:45
PROVIDERS: ATTEND Obstetrics & Gynecology
DX: O47.1 False labor at or after 37 completed weeks of gestation (principal); O99.282 Endocrine, nutritional and metabolic diseases complicating pregnancy, second trimester; E07.9 Disorder of thyroid, unspecified; R87.810 Cervical high risk human papillomavirus (HPV) DNA test positive; O34.211 Maternal care for low transverse scar from previous cesarean delivery; Z79.899 Other long term (current) drug therapy; Z3A.37 37 weeks gestation of pregnancy
CPT/HCPCS: 76819

== ENCOUNTER 2022-10-25 09:51 | Inpatient (IN) | payer BC, OTHER ==
[2022-10-24 10:28] LABS: Hematocrit 36.4 % (34.9-44.5); Hemoglobin 12.5 g/dL (12.0-15.5); Platelet Count 167 10x3/uL (150-450)
[2022-10-24 11:05] LABS: HBSAg Index 0.19 S/CO (0-0.99); Hep B Surf Ag Non-Reactive S/CO (NonReactive); Syphilis Antibody Nonreactive (Nonreactive); Syphilis Antibody Index 0.02 S/CO (<1.00 Non-Reactive)
[~2022-10-25 09:51] MED LIST: Acetaminophen 500 MG TAB PO PRN; Bicitra 30 ML UDCUP PO PRN; CEFAZOLIN 2 GM in Sodium Chloride 0.9% 100 ML IVPB SCH; Carboprost 250 MCG/ML AMP IM PRN; Diphenoxylate HCl/Atropine Tablet PO PRN; Famotidine/PF 20 mg/2ml Vial SLOW IVP PRN; Lactated Ringer's 1,000 ML IV SCH; Methylergonovine 0.2 MG/ML VIAL IM PRN; Misoprostol 200 MCG TAB PR PRN; NS w/ Oxytocin 30 units 500 ML IV SCH; Ondansetron PF 4 MG/2 ML Vial IVP PRN; Promethazine HCl 25 MG/ML VIAL IM PRN; Tranexamic Acid 1,000 MG/10 ML VIAL IVP PRN; fentaNYL 50 mcg/mL 1 mL Vial SLOW IVP PRN; hydrALAZINE 20 MG/ML VIAL SLOW IVP PRN
[2022-10-25 10:18] VITALS: BMI 37.2
[2022-10-25] MEDS ORDERED: CEFAZOLIN 2 GM VIAL ONE (11:07)
[2022-10-25] MEDS ORDERED: Naloxone HCl 0.4 mg/ml Vial IVP PRN ×2 (11:29)
[2022-10-25] MEDS ORDERED: Promethazine HCl 25 MG SUPP PR PRN (11:29)
[2022-10-25] MEDS ORDERED: Ondansetron PF 4 MG/2 ML Vial IVP PRN ×2 (11:29→16:49)
[2022-10-25] MEDS ORDERED: Meperidine HCl/PF 25 MG/ML VIAL SLOW IVP PRN (11:29)
[2022-10-25] MEDS ORDERED: HYDROmorphone 2 MG/ML VIAL SLOW IVP PRN (11:29)
[2022-10-25] MEDS ORDERED: Naloxone HCl 0.4 mg/ml Vial IV PRN (11:29)
[2022-10-25] MEDS ORDERED: Moisturizing Cream (Eucerin) 113 GM JAR TOP PRN (11:29)
[2022-10-25] MEDS ORDERED: Promethazine HCl 25 MG/ML VIAL IM PRN ×2 (11:29→16:49)
[2022-10-25] MEDS ORDERED: Ondansetron HCl/PF 4 MG/2 ML Vial IVP PRN (11:29)
[2022-10-25] MEDS ORDERED: Fentanyl 100 MCG/2 ML VIAL SLOW IVP PRN (11:29)
[2022-10-25] MEDS ORDERED: diphenhydrAMINE 50 MG/ML VIAL IVP PRN (11:29)
[2022-10-25] MEDS ORDERED: Ketorolac Tromethamine 30 MG/ML VIAL IVP SCH (11:30)
[2022-10-25] MEDS ORDERED: Communication Order-Pharmacy FS SCH (11:30)
[2022-10-25] MEDS ORDERED: Phenylephrine 40 MG/NS 250 ML 250 ML ONE (11:41)
[2022-10-25] MEDS ORDERED: Oxytocin 10 UNITS/ML VIAL ONE (11:41)
[2022-10-25] MEDS ORDERED: PHENYLEPHRINE-NS 100 MCG/ML 10 ML SYRINGE ONE (11:41)
[2022-10-25] MEDS ORDERED: fentaNYL 50 mcg/mL 1 mL Vial ONE (11:41)
[2022-10-25] MEDS ORDERED: Ondansetron PF 4 MG/2 ML Vial ONE (12:50)
[2022-10-25] MEDS ORDERED: Dexamethasone 4 mg/ml Vial ONE (12:50)
[2022-10-25] MEDS ORDERED: Methylergonovine 0.2 MG/ML VIAL IM PRN (16:49)
[2022-10-25] MEDS ORDERED: Boostrix 0.5 ML (Tdap) VIAL (>/=7 yrs of age) IM ONE (16:49)
[2022-10-25] MEDS ORDERED: hydrALAZINE 20 MG/ML VIAL SLOW IVP PRN (16:49)
[2022-10-25] MEDS ORDERED: Bisacodyl 10 MG SUPP PR PRN (16:49)
[2022-10-25] MEDS ORDERED: NS w/ Oxytocin 30 units 500 ML IV SCH (16:49)
[2022-10-25] MEDS ORDERED: Misoprostol 200 MCG TAB PR PRN (16:49)
[2022-10-25] MEDS ORDERED: Lanolin Ointment 7 GM TUBE TOP PRN (16:49)
[2022-10-25] MEDS: Simethicone Chewable 80 MG TAB PO PRN (21:23)
[2022-10-25] MEDS: Ketorolac Tromethamine 30 MG/ML VIAL IVP PRN (21:23)
[2022-10-25] MEDS: Ferrous Sulfate 325 MG TAB PO SCH (22:38)
[2022-10-26] MEDS: HYDROcodone/Acetaminophen 5/325 mg Tablet PO PRN ×2 (02:04→09:05)
[2022-10-26 04:05] LABS: Hematocrit 30.8 % (34.9-44.5); Hemoglobin 10.9 g/dL (12.0-15.5); Mean Corpuscular HGB CONC 35.4 g/dL (32.0-36.0); Mean Corpuscular Hemoglobin 31.5 pg (27.0-33.0); Platelet Count 151 10x3/uL (150-450); RBC Distribution Width 12.3 % (11.5-14.5); Red Blood Cell (RBC) Count 3.46 10x6/uL (3.90-5.03); White Blood Cell (WBC) Count 13.1 10x3/uL (3.5-10.5)
[2022-10-26] MEDS: Ketorolac Tromethamine 30 MG/ML VIAL IVP PRN (04:58)
[2022-10-26] MEDS: Simethicone Chewable 80 MG TAB PO PRN (04:58)
[2022-10-26] MEDS: Ferrous Sulfate 325 MG TAB PO SCH ×2 (07:14→22:33)
[2022-10-26] MEDS: Prenatal Vitamin 1 TAB PO SCH (08:14)
[2022-10-26] MEDS: Docusate 100 MG CAP PO SCH ×2 (09:05→21:50)
[2022-10-26] MEDS: Ibuprofen 800 MG TAB PO SCH ×2 (14:13→21:50)
[2022-10-27] MEDS: HYDROcodone/Acetaminophen 5/325 mg Tablet PO PRN (01:37)
[2022-10-27 04:47] LABS: Hemoglobin 10.5 g/dL (12.0-15.5); Mean Corpuscular HGB CONC 33.9 g/dL (32.0-36.0); Mean Corpuscular Volume 91.4 fl (81.6-98.3); Platelet Count 140 10x3/uL (150-450); RBC Distribution Width 12.7 % (11.5-14.5); Red Blood Cell (RBC) Count 3.39 10x6/uL (3.90-5.03); White Blood Cell (WBC) Count 7.8 10x3/uL (3.5-10.5)
[2022-10-27] MEDS: Ibuprofen 800 MG TAB PO SCH ×2 (05:54→13:40)
[2022-10-27] MEDS: Prenatal Vitamin 1 TAB PO SCH (08:36)
[2022-10-27] MEDS: Docusate 100 MG CAP PO SCH (08:36)
[2022-10-27] MEDS: Ferrous Sulfate 325 MG TAB PO SCH (08:37)
[2022-10-27 11:37] VITALS: BP 117/71; TEMP 97.9
== END 2022-10-27 15:55 | disposition home or self-care (01) | DRG 788 ==
LOC: CSHLD 09:51 → CSHPP 16:30
PROVIDERS: ADMIT Obstetrics & Gynecology; ATTEND Obstetrics & Gynecology
PROC: 10D00Z1 Extraction of Products of Conception, Low, Open Approach (ICD-10-PCS; principal; 2022-10-25)
PROC: 3E033VJ Introduction of Other Hormone into Peripheral Vein, Percutaneous Approach (ICD-10-PCS; 2022-10-25)
DX: O34.211 Maternal care for low transverse scar from previous cesarean delivery (principal); O99.214 Obesity complicating childbirth; E66.01 Morbid (severe) obesity due to excess calories; O21.8 Other vomiting complicating pregnancy; Z3A.39 39 weeks gestation of pregnancy; Z37.0 Single live birth
CPT/HCPCS: 36415; 51702; 85014; 85018; 85027; 85049; 86780; 86850; 86900; 86901; 87340; J1100; J1885; J2405; J2590; J3010; J3490; J7120; S0028